=== PATIENT | male | born 1970 | race Caucasian/White ===

== ENCOUNTER → 2018-07-08 | Day surgery (SDC) | payer MEDICARE ==
[~2018-07-08] MED LIST: DEXILANT60 MG PO; FENTANYL CITRATE/PF 100MCG/2 ML INJ ONE; FUROSEMIDE40 MG PO; HYOSCYAMINE SULFATE 0.5 MG/ML INJ ONE; LIPITOR20 MG PO; LOSARTAN POTASS25 MG PO; METOCLOPRAMIDE HCL 10 MG/2ML VIAL ONE; MIDAZOLAM HCL 2 MG/2 ML VIAL ONE; NOVOLOG100 UNIT/1 SC; NOVOLOG100 UNITS1; PANTOPRAZOLE SO40 MG PO; PRAVASTATIN SOD40 MG PO; PREPARATION H C51 GM RC; PROCARDIA XL30 MG PO; PROPOFOL IV EMULSION 10 MG/ML 50 ML VIAL ONE; SENNA-GEN8.6 MG PO; TESSALON PERLE100 MG PO; TYLENOL325 MG PO; ULTRAM50 MG PO; XARELTO10 MG PO
[2018-07-08 10:55] VITALS: BP 111/80
--- NOTE | 2018-07-08 11:12 | Operative Report ---
DATE OF PROCEDURE: July 08, 2018 REFERRING PHYSICIAN: Dr. Driver at the [facility]. PROCEDURES PERFORMED 1. Esophagogastroduodenoscopy with biopsies. 2. Colonoscopy with polypectomy. INDICATIONS FOR EGD: Anemia. INDICATIONS FOR COLONOSCOPY: Anemia. MEDICATION: Patient was done under MAC. Please see anesthesiologist's note. PROCEDURE: With the patient in the left lateral decubitus position, the flexible fiberoptic Olympus gastroscope was introduced into the esophagus under direct visualization without any difficulty. There was some patchy erythema noted in the distal esophagus. The scope was then advanced with ease into the stomach. The mucosa overlying the antrum and the body revealed some patchy erythema and mild to moderate edema, and biopsies were obtained and sent to stain for H. pylori. Pylorus appeared to be of normal contour and shape. It was intubated with ease. The scope was advanced all the way to the 2nd portion of the duodenum. The scope was then withdrawn slowly, and some of the folds in the proximal 2nd portion appeared somewhat flattened, and biopsies were obtained to rule out sprue. Mucosa overlying the duodenal bulb appeared to be within normal limits. The scope was then withdrawn back into the stomach and retroflexed. The mucosa overlying the fundus and the cardia appeared to be within normal limits. The scope was then straightened out. The stomach was decompressed. The scope was subsequently withdrawn. Patient tolerated the procedure well. IMPRESSION 1. Distal esophagitis, mild. 2. Gastritis, biopsied. Biopsies sent stain for Helicobacter pylori. 3. Rule out sprue. PLAN: Follow up histology. Continue Dexilant 60 mg 1 p.o. q.a.m. a.c. Patient was then turned around. After adequate lubrication of the anal canal, a flexible fiberoptic Olympus colonoscope was inserted into the rectum with ease and advanced all the way to the cecum. The scope was then withdrawn slowly. Mucosa overlying the cecum, ascending colon and transverse colon grossly appeared to be within normal limits. One polyp was snared from the descending colon. A single diverticulum was noted in the descending colon. The sigmoid grossly appeared to be within normal limits. One polyp was snared from the rectum. The scope was then retroflexed into the distal rectum. The area around the dentate line appeared to be within normal limits. The scope was then straightened out. It was subsequently withdrawn. Patient tolerated the procedure well. IMPRESSION 1. Descending colon polyp, snared. 2. Diverticulosis, minimal. 3. Rectal polyps, snared. PLAN: Follow up histology. Initiate high initiate and high-fiber low-fat diet. Initiate high-fiber supplement. Patient might benefit from a followup colonoscopy in 3 years. Patient might benefit from a small bowel series to complete the workup. Job#: [id number] JULIETA cc: Dr. DRIVER
--- OUTSIDE RECORDS SUMMARY | 2018-07-16 11:53 | XMS REPORT ---
[facility] Address Unknown Phone Unavailable Care Team Providers Care Club Manager Name Role Phone Unavailable Unavailable Problems This patient has no known problems. Allergies, Adverse Reactions, Alerts This patient has no known allergies or adverse reactions. Medications This patient has no known medications. Encounters Start Date/Time End Date/Time Encounter Type Admission Type Attending [facility] Emergency Department Facility Care Department Encounter ID 2018-10-09 00:00:00 2018-10-09 00:00:00 Outpatient [facility] [id number] 2018-09-27 00:00:00 2018-09-27 00:00:00 Outpatient [facility] [id number] 2018-09-10 00:00:00 2018-09-10 00:00:00 Outpatient [facility] [id number] 2018-07-03 00:00:00 2018-07-03 00:00:00 Outpatient [facility] [id number] 2018-07-01 09:28:17 2018-07-01 09:28:17 Outpatient [facility] [id number] 2018-07-01 08:16:52 2018-07-01 08:16:52 Outpatient [facility] [id number] 2018-07-01 00:00:00 2018-07-01 00:00:00 Outpatient [facility] [id number] 2018-06-20 10:10:33 2018-06-20 10:10:33 Outpatient [facility] [id number] 2018-06-13 12:44:41 2018-06-13 12:44:41 Outpatient [facility] [id number] 2018-06-13 10:59:01 2018-06-13 10:59:01 Outpatient [facility] [id number] 2017-11-30 00:00:00 2017-11-30 00:00:00 Outpatient [facility] [id number] 2017-07-23 00:00:00 2017-07-23 00:00:00 Outpatient [facility] [id number] 2017-07-11 10:05:15 2017-07-11 10:05:15 Outpatient [facility] [id number] 2017-07-09 14:14:52 2017-07-09 14:14:52 Outpatient [facility] [id number] 2017-03-09 14:12:37 2017-03-09 14:12:37 Outpatient [facility] [id number] 2017-02-16 14:25:25 2017-02-16 14:25:25 Outpatient [facility] [id number] 2016-05-16 00:00:00 2016-05-16 00:00:00 Outpatient [facility] [id number] 2015-01-27 00:00:00 2015-01-27 00:00:00 Outpatient [facility] [id number]
== END | disposition home or self-care (01) ==
LOC: OR 07:40
PROVIDERS: ATTEND Internal Medicine Gastroenterology
DX: D64.9 Anemia, unspecified (principal); D12.4 Benign neoplasm of descending colon; D12.8 Benign neoplasm of rectum; K29.70 Gastritis, unspecified, without bleeding; K20.9 Esophagitis, unspecified; K21.9 Gastro-esophageal reflux disease without esophagitis; K57.30 Diverticulosis of large intestine without perforation or abscess without bleeding; E11.22 Type 2 diabetes mellitus with diabetic chronic kidney disease; I12.9 Hypertensive chronic kidney disease with stage 1 through stage 4 chronic kidney disease, or unspecified chronic kidney disease; N18.4 Chronic kidney disease, stage 4 (severe); H40.9 Unspecified glaucoma; J45.909 Unspecified asthma, uncomplicated; Z88.0 Allergy status to penicillin; Z01.810 Encounter for preprocedural cardiovascular examination; Z79.4 Long term (current) use of insulin
CPT/HCPCS: 36415; 43239; 45385; 82948; 88305; 88312; 93005; J1980; J2250; J2765; 45378

== ENCOUNTER 2019-12-08 15:36 | Inpatient (IN) | payer MEDICARE ==
[~2019-12-08] VITALS: Ht 170.2 cm; Wt 68.3 kg
[~2019-12-08 15:36] MED LIST changes: -FENTANYL CITRATE/PF 100MCG/2 ML INJ ONE; -HYOSCYAMINE SULFATE 0.5 MG/ML INJ ONE; -METOCLOPRAMIDE HCL 10 MG/2ML VIAL ONE; -MIDAZOLAM HCL 2 MG/2 ML VIAL ONE; -PROPOFOL IV EMULSION 10 MG/ML 50 ML VIAL ONE
--- NOTE | 2019-12-08 16:34 | Diagnostic Imaging Report ---
EXAMINATION: CHEST SINGLE (PORTABLE) INDICATION: Weakness COMPARISON: None FINDINGS: LINES/TUBES:EKG leads overlie the chest. LUNGS:The lungs are moderately inflated. No focal consolidation. Mild central pulmonary vascular congestion. PLEURA:No pleural effusion or pneumothorax. MEDIASTINUM:The cardiomediastinal silhouette appears normal in size and shape. Atherosclerotic calcifications of the thoracic aorta. BONES/SOFT TISSUES:No acute osseous injury. ABDOMEN:No free air under the diaphragm. IMPRESSION: Mild central pulmonary venous congestion without ana pulmonary edema. No focal pneumonia. Signed by: Sandrita Bailey MD on 12/08/2019 4:31 PM
[2019-12-08 16:46] LABS: BASOPHILS % 0.5 % (0.0-1.0); EOSINOPHILS # (AUTO) 0.4 (0.0-0.4); EOSINOPHILS % 5.8 % (0.0-6.0); HEMATOCRIT 22.6 % (38.2-49.6); HEMOGLOBIN 7.4 g/dL (14.0-18.0); LYMPHOCYTES # (AUTO) 0.8 (1.0-3.2); LYMPHOCYTES % 13.7 % (18.0-39.1); MEAN CORPUSCULAR HEMOGLOBIN 29.5 pg (28-32); MEAN CORPUSCULAR HGB CONC 32.7 g/dL (31-35); MONOCYTES # (AUTO) 0.4 (0.2-0.8); NEUTROPHILS # (AUTO) 4.4 (2.1-6.9); NEUTROPHILS % 72.7 % (38.7-80.0); PLATELET COUNT 229 x10e3/uL (140-360); RED BLOOD COUNT 2.51 x10e6/uL (4.3-5.7); RED CELL DISTRIBUTION WIDTH 14.5 % (11.7-14.4)
[2019-12-08 16:58] LABS: INR 1.01; PROTHROMBIN TIME 13.9 seconds (11.9-14.5)
[2019-12-08 16:59] LABS: PARTIAL THROMBOPLASTIN TIME 30.9 seconds (23.8-35.5)
[2019-12-08] MEDS ORDERED: CLONIDINE HCL 0.1 MG TAB PO ONE (17:15)
[2019-12-08 17:24] LABS: ALBUMIN 3.1 g/dL (3.5-5.0); ALBUMIN/GLOBULIN RATIO 0.9 (0.8-2.0); ANION GAP 17.1 mmol/L (8-16); CALCIUM 8.8 mg/dL (8.4-10.2); CREATININE, SERUM 8.59 mg/dL (0.72-1.25); POTASSIUM 4.1 mmol/L (3.5-5.1)
[2019-12-08] MEDS ORDERED: PANTOPRAZOLE 40 MG 10ML VIAL IV STA (17:35)
[2019-12-08 18:12] LABS: CREATINE KINASE MB 4.9 ng/mL (0-5.0)
[2019-12-08] MEDS ORDERED: FUROSEMIDE INJ 10 MG/ML 2 ML VIAL IV PRN (18:15)
[2019-12-08] MEDS ORDERED: SODIUM CHLORIDE 0.9% 1000ML 1,000 ML IV ONE (18:15)
[2019-12-08] MEDS ORDERED: SODIUM CHLORIDE 0.9% 250ML 250 ML IV ONE (18:15)
--- NOTE | 2019-12-08 18:53 | NUR ---
PER DR. EDWARDS, TEMP HD CATH MAY BE PLACED ON 12/09/2019 AM
--- NOTE | 2019-12-08 19:20 | NUR ---
report to dinora
--- NOTE | 2019-12-08 21:01 | Diagnostic Imaging Report ---
CT Abdomen and Pelvis without contrast INDICATION: Anemia, abdominal pain, acute renal failure ^ABD DIARRHEA ^[id number] ^2019 TECHNIQUE: Thin collimation axial images obtained from the diaphragm to the level of the pubic symphysis without nonionic intravenous contrast. Dose reduction techniques used: Automated exposure control, adjustment of the mAs and/or kVp according to patient size, standardized low-dose protocol, and/or iterative reconstruction technique. RADIATION DOSE: Total DLP: 232.89 mGy*cm Estimated effective dose: (DLP x 0.015 x size factor) mSv CTDIvol has been reviewed. It is below the limits set by the Radiation Protocol Committee (RPC). COMPARISON: None. ABDOMEN FINDINGS: Lung Bases: Cardiomegaly. Pericardial effusion measures 9 mm. Trace atelectasis in the posterior costophrenic angles. Liver: Normal in attenuation without mass. Gallbladder: Present and contains subcentimeter calcified gallstones. No ductal dilatation. Pancreas: Normal attenuation without mass. Spleen: Normal size without mass. Adrenal Glands: Diffusely thickened adrenal glands without discrete nodule. Kidneys: Right: Diminutive with mild perinephric inflammation. There are calcifications of the renal vasculature. No cortical mass or hydronephrosis Left: Diminutive with mild perinephric inflammation. There are calcifications of the renal vasculature Lymph Nodes: Periaortic lymph nodes are increased in number but measure less than 10 mm. Aorta: Normal in diameter and mildly tortuous with scattered calcifications. There are calcifications throughout the visceral arteries. PELVIS FINDINGS: Bowel: Stomach: Collapsed. Small Bowel: Normal in caliber with normal wall thickness. Large Bowel: Mild to moderate burden of stool. No pericolonic inflammation or dilatation. Appendix: Normal. Bladder: Well-distended and normal. Prostate: Mildly enlarged. There are calcifications of the vas deferens and the penis. Ureters: No ureteral dilatation or calculus. Peritoneum/retroperitoneum: No free fluid or fluid collection. Bones: Mild degenerative changes of the spine. No focal osseous lesions.. IMPRESSION: 1. No evidence for bowel obstruction or inflammation. Normal appendix. 2. Diminutive kidneys with bilateral perinephric inflammation. Findings are suggestive of chronic renal disease. No hydronephrosis. 3. Cholelithiasis. No bile duct dilatation. 4. Cardiomegaly and small pericardial effusion. 5. No splenomegaly, retroperitoneal hemorrhage, or mass to explain anemia. Signed by: Dr. Rambo Ramsay MD on 12/08/2019 8:58 PM
[2019-12-09 02:29] LABS: BASOPHILS % 0.6 % (0.0-1.0); EOSINOPHILS # (AUTO) 0.3 (0.0-0.4); EOSINOPHILS % 5.2 % (0.0-6.0); HEMATOCRIT 20.1 % (38.2-49.6); LYMPHOCYTES # (AUTO) 1.1 (1.0-3.2); LYMPHOCYTES % 20.1 % (18.0-39.1); MEAN CORPUSCULAR HEMOGLOBIN 29.5 pg (28-32); MEAN CORPUSCULAR HGB CONC 32.8 g/dL (31-35); MEAN CORPUSCULAR VOLUME 89.7 fL (81-99); MONOCYTES # (AUTO) 0.4 (0.2-0.8); MONOCYTES % 7.4 % (4.4-11.3); NEUTROPHILS # (AUTO) 3.6 (2.1-6.9); NEUTROPHILS % 66.5 % (38.7-80.0); PLATELET COUNT 199 x10e3/uL (140-360); RED BLOOD COUNT 2.24 x10e6/uL (4.3-5.7); RED CELL DISTRIBUTION WIDTH 14.3 % (11.7-14.4)
[2019-12-09 02:33] LABS: HEMOGLOBIN 6.6 g/dL (14.0-18.0)
[2019-12-09 02:40] LABS: ALBUMIN 2.7 g/dL (3.5-5.0); ALBUMIN/GLOBULIN RATIO 0.9 (0.8-2.0); CALCIUM 8.5 mg/dL (8.4-10.2); CREATININE, SERUM 8.73 mg/dL (0.72-1.25)
--- NOTE | 2019-12-09 02:40 | NUR ---
DR JONES PAGED RESULTS OF H/H (6.6.1), ORDERS RECEIVED TO TRANSFUSE ONE UNIT OF BLOOD NOW.
[2019-12-09] MEDS ORDERED: SODIUM CHLORIDE 0.9% 250ML 250 ML ONE (03:08)
--- NOTE | 2019-12-09 03:10 | NUR ---
FIRST UNIT OF BLOOD STARTED AT THIS TIME, PT EDUCATED ON S/S TRANSFUSION REACTION, VERBALIZED UNDERSTANDING.
[2019-12-09] MEDS ORDERED: SODIUM CHLORIDE 0.9% 1000ML 1,000 ML ONE ×2 (03:27→09:04)
--- NOTE | 2019-12-09 06:34 | History and Physical ---
REASON FOR ADMISSION: 1. Acute anemia. 2. Gastrointestinal bleed. 3. End-stage renal disease. 4. Hypertension. HISTORY OF PRESENT ILLNESS: The patient is a 49-year-old gentleman, who presented with some fatigue, lightheadedness and melanic stools for the past few days and eventually, he was brought to the emergency room. He was noticed to have a significantly low hemoglobin as well as worsening of his chronic kidney disease stage 5, so therefore he will be admitted for further evaluation and treatment. PAST MEDICAL HISTORY: Significant for chronic kidney disease stage 5, hypertension. MEDICATIONS: See MAR. ALLERGIES: PENICILLIN. SOCIAL HISTORY: Lives at home with his brother. Nondrinker, nonsmoker. FAMILY HISTORY: Hypertension. PHYSICAL EXAMINATION: VITAL SIGNS: Temperature 98.6, blood pressure 136/74, pulse 74, and sats 98% on room air. GENERAL: No apparent distress, lying in bed. NECK: Supple. CARDIOVASCULAR: Regular rate and rhythm. LUNGS: Clear to auscultation bilaterally. ABDOMEN: Good bowel sounds. Soft, nontender. No peritoneal signs. EXTREMITIES: No clubbing or cyanosis. NEUROLOGIC: Nonfocal. ASSESSMENT AND PLAN: 1. Gastrointestinal bleed. We will consult GI to evaluate the patient. 2. Anemia. We will continue to monitor and transfuse as needed. 3. End-stage renal disease. We will consult Renal. 4. Hypertension. We will continue to monitor. Please see hospital chart for details. MD HERNAN Pagan/ROSLYN /[id number]
[2019-12-09] MEDS: PANTOPRAZOLE 40 MG 10ML VIAL IV SCH ×2 (07:39→18:11)
--- NOTE | 2019-12-09 08:15 | Consultation ---
DATE OF CONSULTATION: 12/09/2019 HISTORY OF PRESENT ILLNESS: This is 49 years old, who has a history of diabetes and also history of renal disease and hypertension, presented to the hospital because of problems with fatigue, lightheaded, and black stool. The patient denies any abdominal pain along with this problem. His workup revealed that he has anemia with a hemoglobin as low as 6.6 this morning. His BUN of 89 with creatinine of 8.73. He denies any history of . He apparently had a colonoscopy about 2 years or so ago, which showed some small little polyps. PAST MEDICAL PROBLEMS: History of diabetes, history of hypertension, history of renal disease. ALLERGIES: PENICILLIN. MEDICATIONS: At home including atorvastatin calcium, Dexilant, Lasix, insulin, losartan, and nifedipine. SOCIAL HISTORY: Denies any alcohol use. FAMILY HISTORY: Noncontributory. REVIEW OF SYSTEMS: Denies any chest pain or shortness of breath. Denies any dysphagia or odynophagia. Denies any dysuria, hematuria, or any kind of syncopal episode. PHYSICAL EXAMINATION: GENERAL: Awake, alert, appears to be stable clinically at this point. VITAL SIGNS: Afebrile, currently with stable vital signs. HEAD, EYES, EARS, NOSE, AND THROAT: Normocephalic, atraumatic. Sclerae are anicteric. NECK: Supple. HEART: Regular. LUNGS: Sounds clear. ABDOMEN: Soft. There is no distention at this point, it is nontender. EXTREMITIES: No clubbing. LABORATORY VALUES: Earlier this morning, BUN 89, creatinine of 8.73. Hemoglobin was 6.6 with hematocrit 20.1, and PT/INR is normal. He has a CAT scan of the abdomen and pelvis, which shows evidence of small bowel obstructions, gallstones, cardiomegaly. IMPRESSION: 1. Gastrointestinal bleed. 2. Anemia. 3. Diabetes. 4. Hypertension. RECOMMENDATION: Continue on the current medications with Protonix or pantoprazole. We will proceed with EGD for further evaluations. Follow labs. MD JASS Griffin/MODL /[id number] cc: Elijah Chandler MD
[2019-12-09 09:18] LABS: BASOPHILS % 0.4 % (0.0-1.0); EOSINOPHILS # (AUTO) 0.2 (0.0-0.4); EOSINOPHILS % 3.7 % (0.0-6.0); HEMATOCRIT 22.4 % (38.2-49.6); HEMOGLOBIN 7.3 g/dL (14.0-18.0); LYMPHOCYTES # (AUTO) 1.1 (1.0-3.2); LYMPHOCYTES % 22.2 % (18.0-39.1); MEAN CORPUSCULAR HGB CONC 32.6 g/dL (31-35); MEAN CORPUSCULAR VOLUME 88.9 fL (81-99); MONOCYTES # (AUTO) 0.4 (0.2-0.8); MONOCYTES % 7.6 % (4.4-11.3); NEUTROPHILS # (AUTO) 3.2 (2.1-6.9); NEUTROPHILS % 65.7 % (38.7-80.0); PLATELET COUNT 198 x10e3/uL (140-360); RED BLOOD COUNT 2.52 x10e6/uL (4.3-5.7)
--- NOTE | 2019-12-09 09:19 | NUR ---
CONSENT DONE AND ON CHART
[2019-12-09] MEDS ORDERED: SODIUM BICARBONATE 8.4% SYRING 150 ML in DEXTROSE 5% 1,000 ML IV SCH (13:24)
[2019-12-09 13:34] VITALS: BP 169/93
--- NOTE | 2019-12-09 14:00 | NUR ---
pt arrived to unit, resp even and unlabored at this time no distress noted, pt oriented to room and call light.
[2019-12-09] MEDS ORDERED: SODIUM CHLORIDE 0.9% 250ML 250 ML IV ONE (14:45)
[2019-12-09 15:15] LABS: BASOPHILS % 0.6 % (0.0-1.0); EOSINOPHILS # (AUTO) 0.2 (0.0-0.4); EOSINOPHILS % 4.4 % (0.0-6.0); HEMATOCRIT 23.1 % (38.2-49.6); HEMOGLOBIN 7.6 g/dL (14.0-18.0); LYMPHOCYTES # (AUTO) 0.8 (1.0-3.2); LYMPHOCYTES % 17.2 % (18.0-39.1); MEAN CORPUSCULAR HEMOGLOBIN 29.3 pg (28-32); MEAN CORPUSCULAR HGB CONC 32.9 g/dL (31-35); MEAN CORPUSCULAR VOLUME 89.2 fL (81-99); MONOCYTES # (AUTO) 0.3 (0.2-0.8); MONOCYTES % 5.6 % (4.4-11.3); NEUTROPHILS # (AUTO) 3.4 (2.1-6.9); NEUTROPHILS % 71.8 % (38.7-80.0); PLATELET COUNT 199 x10e3/uL (140-360); RED BLOOD COUNT 2.59 x10e6/uL (4.3-5.7); RED CELL DISTRIBUTION WIDTH 15.3 % (11.7-14.4)
[2019-12-09 15:34] VITALS: BP 176/94
[2019-12-09] MEDS ORDERED: LIDOCAINE HCL 1% LOCAL INJ 20 ML VIAL ONE (15:37)
[2019-12-09 15:41] LABS: % IRON SATURATION 46 % (15-50); IRON 102 ug/dL (65-175); TOTAL IRON BINDING CAPACITY 223 ug/dL (261-478); TRANSFERRIN 159 mg/dL (174-364)
--- NOTE | 2019-12-09 16:26 | NUR ---
pt off unit for catheter placement.
--- NOTE | 2019-12-09 16:30 | Diagnostic Imaging Report ---
EXAM: US RENAL RETROPERITONEAL COMP DATE: 12/09/2019 12:00 AM INDICATION: Acute kidney injury COMPARISON: CT from 12/08/2019 FINDINGS: The right kidney is decreased in size measuring 7.7 x 4.9 x 4.6 cm with cortical thickness of 1.2 cm. Cortical echogenicity is increased. There is a 1.2 x 1.0 x 1.2 cm cyst identified within the mid right kidney. There is no evidence for solid renal mass, hydronephrosis, or shadowing calculi. The left kidney is mildly decreased in size measuring 8.4 x 5.2 x 4.5 cm with cortical thickness of 1.7 cm. Cortical echogenicity is increased. There is a 1.2 x 1.0 x 0.9 cm simple cyst identified within the inferior left kidney. There is no evidence for solid renal mass, hydronephrosis, or shadowing calculi. The urinary bladder demonstrates no significant abnormalities. Prevoid volume is 323 cc. IMPRESSION: Sonographic findings suggestive of chronic medical renal disease. Signed by: Dr. Diony Christopher MD on 12/09/2019 4:27 PM
--- NOTE | 2019-12-09 17:15 | Diagnostic Imaging Report ---
Tunneled dialysis catheter insertion. History: Renal failure. Modality: Sonography and fluoroscopy. Sedation: None Pipe Organ Technician: MD Candi. Aircraft Loadmaster Superintendent: None. Approach: Right internal jugular vein Estimated blood loss: < 5 cc. Specimen: None. Fluoroscopy Time: 0.5 min. Dose (Ka,r): 3.35 mGy. Technique: Informed written consent was obtained. Discussion of risks, benefits, and alternatives were made with the patient. The patient expressed understanding and agreed to proceed. All elements maximal sterile barrier technique was utilized for this procedure, including utilization of sterile scrub solution for skin prep, a large sterile sheet to cover the areas of the patient that were not prepped, and hand hygiene, mask, head covering, and sterile gown for performing radiologist and scrub technologist. The skin was anesthetized with 2% lidocaine.Ultrasound evaluation showed a patent and compressible right internal jugular vein, which was punctured under direct real-time ultrasound guidance with a micropuncture needle. An ultrasound image was saved to PACS. A 0.018 inch wire was placed through the needle into the right atrium. A 4 [place] micropuncture sheath was placed and a 0.035 wire was advanced into the IVC. A subcutaneous tunnel was created in the right anterior chest wall by blunt dissection. A 19 cm 15 [place] Islander palindrome catheter was brought through the tunnel. The vessel tract was serially dilated over a J-wire. A peel-away sheath was placed in the right IJ vein and the catheter was advanced through the sheath, with its distal tip terminating in the right atrium. The peel-away sheath was removed. The ports were flushed and aspirated easily following placement. Lumens were locked with heparin. The catheter was sutured to the skin with to secure its placement. A resorbable pursestring suture was placed at the catheter exit site. The small jugular incision site was closed using Dermabond. A sterile dressing was applied. The patient told the procedure without immediate complication. Results: Spot radiograph of the chest demonstrates the new dialysis catheter to lie in the expected position with its tip overlying the superior right atrium. Impression: Successful, uncomplicated placement of a right internal jugular tunneled dialysis catheter using sonographic and fluoroscopic guidance and conscious sedation. Signed by: Dr. Diony Christopher MD on 12/09/2019 5:13 PM
[2019-12-09] MEDS: SODIUM BICARBONATE 650 MG TAB PO SCH (17:58)
[2019-12-09] MEDS ORDERED: CEFAZOLIN SOD 1 GM/NS 50ML 50 ML IV ONE (19:00)
--- NOTE | 2019-12-09 19:23 | NUR ---
report given to oncoming nurse, walking rounds complete.
[2019-12-09] MEDS ORDERED: SODIUM CHLORIDE 0.9% 1000ML 2,000 ML ONE (19:49)
[2019-12-09 20:00] VITALS: BP 149/90
[2019-12-09 20:46] VITALS: BP 149/90
[2019-12-09 21:30] LABS: BASOPHILS % 0.3 % (0.0-1.0); EOSINOPHILS # (AUTO) 0.1 (0.0-0.4); EOSINOPHILS % 2.1 % (0.0-6.0); HEMATOCRIT 22.8 % (38.2-49.6); HEMOGLOBIN 7.6 g/dL (14.0-18.0); LYMPHOCYTES # (AUTO) 0.8 (1.0-3.2); LYMPHOCYTES % 14.1 % (18.0-39.1); MEAN CORPUSCULAR HGB CONC 33.3 g/dL (31-35); MONOCYTES # (AUTO) 0.3 (0.2-0.8); MONOCYTES % 5.9 % (4.4-11.3); NEUTROPHILS # (AUTO) 4.4 (2.1-6.9); NEUTROPHILS % 77.1 % (38.7-80.0); PLATELET COUNT 204 x10e3/uL (140-360); RED BLOOD COUNT 2.62 x10e6/uL (4.3-5.7); RED CELL DISTRIBUTION WIDTH 14.9 % (11.7-14.4)
--- NOTE | 2019-12-09 21:44 | Consultation ---
DATE OF CONSULTATION: 12/09/2019 REASON FOR CONSULTATION: Advanced kidney failure. HISTORY OF PRESENT ILLNESS: A 49-year-old white male with underlying history of longstanding diabetes since at least 2012 with retinopathy. The patient is legally blind and disabled, history of hypertension. He has been followed at [facility] for possible kidney transplant for advanced kidney failure. He knows he has CKD 5. This time came in with black-colored stools, strong suspicion of GI bleed, scheduled for EGD later on this afternoon. He is currently lying supine, in no apparent distress. Denies shortness of breath, nausea, vomiting, abdominal pain. Denies any prior history of any peptic ulcer disease. Denies any history of hepatitis, CVA, stroke, NH, congestive heart failure, or kidney stone disease. LABORATORY DATA: Labs show white count is 4.8, hemoglobin 7.3. Chemistry; sodium 143, potassium 4, bicarb 15, BUN 89, creatinine 8.7. LFTs noted. Magnesium 2. ALLERGIES: TO PENICILLIN. SOCIAL HISTORY: Does not smoke or drink. Lives with his mother. He is not . CURRENT MEDICATIONS: The patient is on IV bicarb drip along with clonidine p.r.n. and pantoprazole IV. PHYSICAL EXAMINATION: GENERAL: Awake, alert, oriented x3, lying supine, in no apparent distress. VITAL SIGNS: Blood pressure of 169/93, pulse rate 96, afebrile. HEAD AND NECK: Cornea clear. Oral mucosa moist. LUNGS: Clear. No rales. HEART: S1 and S2 audible. No rubs or gallops. ABDOMEN: Otherwise soft and nontender. No apparent visceromegaly. EXTREMITIES: Lower extremity examination shows no edema. IMPRESSION AND PLAN: Advanced kidney failure, now end-stage renal disease, severe acidosis, anemia multifactorial, must rule out GI bleed, recently had colonoscopy done by Dr. Kenny. Discussed plan of care with Dr. Kenny and ER physician. EGD will be done tomorrow. In the meantime, we will have a tunneled dialysis catheter placed GENA and dialyze, transfuse 2 units of packed RBC. I will discontinue his IV bicarbonate drip. Start bicarbonate by mouth, iron profile sent. We will need IV iron and erythropoietin. Renal diet once after EGD. Discussed with IR director, having some staffing issues, but she is going to ensure that this catheter is going to be placed today and the patient will be dialyzed. I will transfuse 2 units of packed RBC with dialysis. Discussed with the patient. He agrees with the entire plan. MD MARIANELA Mercado/ROSLYN /[id number]
[2019-12-10] VITALS (9 sets, daily range): BP systolic 119–195; BP diastolic 76–111
[2019-12-10] MEDS: CLONIDINE HCL 0.1 MG TAB PO PRN ×2 (04:45→22:32)
[2019-12-10] MEDS: PANTOPRAZOLE 40 MG 10ML VIAL IV SCH ×2 (06:00→17:02)
[2019-12-10 06:36] LABS: BASOPHILS % 0.6 % (0.0-1.0); EOSINOPHILS # (AUTO) 0.3 (0.0-0.4); HEMATOCRIT 21.8 % (38.2-49.6); HEMOGLOBIN 7.3 g/dL (14.0-18.0); LYMPHOCYTES # (AUTO) 1.1 (1.0-3.2); LYMPHOCYTES % 19.8 % (18.0-39.1); MEAN CORPUSCULAR HEMOGLOBIN 28.9 pg (28-32); MEAN CORPUSCULAR HGB CONC 33.5 g/dL (31-35); MEAN CORPUSCULAR VOLUME 86.2 fL (81-99); MONOCYTES # (AUTO) 0.4 (0.2-0.8); NEUTROPHILS # (AUTO) 3.6 (2.1-6.9); NEUTROPHILS % 67.2 % (38.7-80.0); PLATELET COUNT 188 x10e3/uL (140-360); RED BLOOD COUNT 2.53 x10e6/uL (4.3-5.7); RED CELL DISTRIBUTION WIDTH 14.6 % (11.7-14.4)
[2019-12-10] MEDS ORDERED: SODIUM CHLORIDE 0.9% 250ML 250 ML ONE (06:44)
[2019-12-10 07:15] LABS: ALBUMIN 2.7 g/dL (3.5-5.0); ALKALINE PHOSPHATASE 52 IU/L (40-150); ANION GAP 10.1 mmol/L (8-16); BLOOD UREA NITROGEN 49 mg/dL (7-26); BUN/CREATININE RATIO 8 (6-25); CALCIUM 8.3 mg/dL (8.4-10.2); CARBON DIOXIDE 25 mmol/L (22-29); CHLORIDE 109 mmol/L (98-107); CREATININE, SERUM 6.14 mg/dL (0.72-1.25); EST GLOMERULAR FILTRATION RATE 10 ML/MIN (60-); GLUCOSE 89 mg/dL (74-118); POTASSIUM 3.1 mmol/L (3.5-5.1); SODIUM 141 mmol/L (136-145)
[2019-12-10 07:23] LABS: ALANINE AMINOTRANSFERASE < 6 IU/L (0-55)
--- NOTE | 2019-12-10 08:21 | NUR ---
CALL PLACED OUT TO DR. WHITE REGARDING PATIENT BP OF 185/109- AWAITING CALLBACK. PATIENT CURRENTLY RECEIVING BLOOD AND WILL GET A DOSE OF LASIX POST TRANSFUSION.
[2019-12-10] MEDS: SODIUM BICARBONATE 650 MG TAB PO SCH ×2 (08:59→16:43)
[2019-12-10] MEDS: FUROSEMIDE INJ 10 MG/ML 2 ML VIAL IV PRN ×2 (10:00→22:31)
--- NOTE | 2019-12-10 10:15 | NUR ---
FIRST BLOOD TRANSFUSION COMPLETED. PATIENT IS AWARE THE SECOND UNIT OF PRBC WILL BE GIVEN DURING DIALYSIS. PATIENT DOES NOT WANT HIS MOTHER TO KNOW HE IS RECEIVING BLOOD BUT THE PATIENT IS AWARE THE SECOND UNIT WILL BE GIVEN DURING DIALYSIS
--- NOTE | 2019-12-10 11:33 | NUR ---
Nutrition Screen Note RD Recommendation for Physician: -ADAT to renal, 2000 ADA diet per MD. Plan of Care: RD following, monitoring for tolerance and adequacy. Pt denied education. Nepro supplement when diet is advanced. 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 The pt is currently NPO for pending EGD, per note- tunneled dialysis catheter needs to be placed GENA for him to get dialysis. Per Nephro note- the pt has been followed by the [facility] for possible kidney transplant. Pt reported his appetite has been so-so. He reported he has had weight loss d/t all the dietary restrictions he must follow. Pt was 145 lbs in Aug 2019, suggesting a 6.8% weight loss within 3 months. Pt denied education at this time. Pt denied N/V/chewing or swallowing issues as well as any food allergies. Pt did report some diarrhea. LBM: not recorded. K- low. Chart reviewed. Labs and meds reviewed. Pt had no other questions or concerns. Will continue to monitor. Current Diet: NPO Malnutrition Evaluation (12/09) The patient does not meet criteria for a specified degree of malnutrition at this time. Will re-evaluate at follow-up as appropriate. Energy intake: -Pt reported a so, so appetite. Weight loss: -Pt had a 6.8% weight loss within 3 months Fat loss: none Muscle loss: Mild-temporal Diet Education Needs Assessment: Diet education indicated, pt declined. Diet Adequacy: (Not meeting calorie needs, Not meeting protein needs) Nutrition Care Level: mod-pt is not meeting calorie needs/protein needs Signed: Reena Kearns, RD, LD
[2019-12-10 12:00] LABS: BASOPHILS % 0.5 % (0.0-1.0); EOSINOPHILS # (AUTO) 0.3 (0.0-0.4); HEMATOCRIT 23.9 % (38.2-49.6); HEMOGLOBIN 7.9 g/dL (14.0-18.0); LYMPHOCYTES # (AUTO) 0.9 (1.0-3.2); LYMPHOCYTES % 16.4 % (18.0-39.1); MEAN CORPUSCULAR HEMOGLOBIN 28.2 pg (28-32); MEAN CORPUSCULAR HGB CONC 33.1 g/dL (31-35); MEAN CORPUSCULAR VOLUME 85.4 fL (81-99); MONOCYTES # (AUTO) 0.4 (0.2-0.8); MONOCYTES % 7.6 % (4.4-11.3); NEUTROPHILS # (AUTO) 3.9 (2.1-6.9); NEUTROPHILS % 70.1 % (38.7-80.0); PLATELET COUNT 175 x10e3/uL (140-360); RED CELL DISTRIBUTION WIDTH 15.2 % (11.7-14.4)
--- NOTE | 2019-12-10 13:37 | NUR ---
PATIENT BACK ON THE UNIT FROM ENDO- PATIENT IN STABLE CONDITION WITH NO S/S RESPIRATORY DISTRESS. NO PAIN VOICED.
[2019-12-10] MEDS ORDERED: PROPOFOL IV EMULSION 10 MG/ML 50 ML VIAL ONE (14:27)
[2019-12-10] MEDS ORDERED: SODIUM CHLORIDE 0.9% 1000ML 2,000 ML ONE (16:02)
[2019-12-10] MEDS ORDERED: LOPERAMIDE HCL 2 MG CAP PO PRN (18:30)
--- NOTE | 2019-12-10 18:34 | NUR ---
CALLED AND ASKED DR. JONES FOR IMODIUM ORDER UPON PATIENT'S REQUEST SINCE PATIENT STATES " 3 LOOSE BOWEL MOVEMENTS SINCE HE ATE" (AFTER HIS PROCEDURE TODAY). RECEIVED ORDER FROM DR. JONES ON IMODIUM; ALSO ASKED DR. JONES FOR A SLIDING SCALE AND PRN BP MED- ORDERS RECEIVED.
[2019-12-10] MEDS ORDERED: DEXTROSE 50% SYRINGE 50 ML IV PRN (18:45)
--- NOTE | 2019-12-10 19:39 | NUR ---
PATIENT IN STABLE CONDITION WITH NO S/S RESPIRATORY DISTRESS. NO PAIN VOICED. PATIENT IS DUE TO RECEIVE THE SECOND UNIT OF PRBC WITH DIALYSIS THIS EVENING. CALL LIGHT IS WITHIN REACH, PATIENT INSTRUCTED TO CALL FOR ASSISTANCE NEEDED. [facility] NURSE IS INFORMED IMODIUM WAS ORDERED FOR PATIENT- CURRENTLY WAITING FOR MEDICATION TO BE VERIFIED BY PHARMACY. BEDSIDE SHIFT REPORT GIVEN TO ONCOMING NURSE.
--- NOTE | 2019-12-10 20:00 | NUR ---
RECEIVED PT IN BED AOX3 RESPIRATIONS ARE EVEN AND UNLABORED .PT IS GETTING DIALYSIS AND 2ND UNIT OF BLOOD.DENIES PAIN CALL LIGHT WITH IN REACH .CONTINUE TO MONITOR
[2019-12-10] MEDS ORDERED: HEPARIN SOD (PORCINE) 1000 UNIT/ML SDV IV PRN (20:30)
[2019-12-10] MEDS ORDERED: SODIUM CHLORIDE 0.9% 1000ML 2,000 ML IV PRN (20:30)
[2019-12-10] MEDS ORDERED: SODIUM CHLORIDE 0.9% 250ML 500 ML IV PRN (20:30)
[2019-12-10] MEDS: INSULIN LISPRO 100 UNIT/1 ML 3ML VIAL SQ SCH (21:00)
[2019-12-11] VITALS (8 sets, daily range): BP systolic 122–183; BP diastolic 74–109
[2019-12-11] MEDS ORDERED: CALCITRIOL0.25 MCG PO (01:29)
[2019-12-11] MEDS ORDERED: HYDRALAZINE HCL25 MG PO (01:29)
[2019-12-11] MEDS ORDERED: SODIUM BICARBO650 MG PO ×2 (01:29→01:37)
[2019-12-11] MEDS: CLONIDINE HCL 0.1 MG TAB PO PRN (04:30)
[2019-12-11] MEDS: PANTOPRAZOLE 40 MG 10ML VIAL IV SCH ×2 (06:07→18:07)
[2019-12-11 06:31] LABS: BASOPHILS % 0.4 % (0.0-1.0); EOSINOPHILS # (AUTO) 0.3 (0.0-0.4); EOSINOPHILS % 6.1 % (0.0-6.0); HEMATOCRIT 27.2 % (38.2-49.6); LYMPHOCYTES # (AUTO) 0.9 (1.0-3.2); LYMPHOCYTES % 17.6 % (18.0-39.1); MEAN CORPUSCULAR HEMOGLOBIN 28.3 pg (28-32); MEAN CORPUSCULAR HGB CONC 33.1 g/dL (31-35); MEAN CORPUSCULAR VOLUME 85.5 fL (81-99); MONOCYTES # (AUTO) 0.6 (0.2-0.8); MONOCYTES % 11.1 % (4.4-11.3); NEUTROPHILS # (AUTO) 3.4 (2.1-6.9); NEUTROPHILS % 64.4 % (38.7-80.0); PLATELET COUNT 159 x10e3/uL (140-360); RED BLOOD COUNT 3.18 x10e6/uL (4.3-5.7); RED CELL DISTRIBUTION WIDTH 15.2 % (11.7-14.4)
--- NOTE | 2019-12-11 06:40 | NUR ---
PT HAD DIALYSIS AND NO FLUID WAS TAKEN .B/P WAS HIGH NOTIFIED DR JONES AND GIVEN ORDERED B/P MEDS .RENEWED B/P MEDICATION .PT RESTING .CONTINUE TO MONITOR
[2019-12-11 06:47] LABS: ANION GAP 9.3 mmol/L (8-16); CALCIUM 7.8 mg/dL (8.4-10.2); CREATININE, SERUM 4.09 mg/dL (0.72-1.25); POTASSIUM 3.3 mmol/L (3.5-5.1)
--- NOTE | 2019-12-11 07:18 | NUR ---
BEDSIDE REPORT GIVEN TO THE ONCOMING NURSE
--- NOTE | 2019-12-11 07:20 | NUR ---
PATIENT IN STABLE CONDITION WITH NO S/S RESPIRATORY DISTRESS. TELEMETRY APPLIED. NO PAIN VOICED. CALL LIGHT IS WITHIN REACH, PATIENT INSTRUCTED TO CALL FOR ASSISTANCE NEEDED.
[2019-12-11] MEDS: INSULIN LISPRO 100 UNIT/1 ML 3ML VIAL SQ SCH ×4 (07:30→21:00)
[2019-12-11] MEDS: NIFEDIPINE CR 30 MG TAB PO SCH (07:43)
[2019-12-11] MEDS: SODIUM BICARBONATE 650 MG TAB PO SCH ×2 (07:44→17:45)
[2019-12-11] MEDS: CALCITRIOL 0.25 MCG CAP PO SCH (07:44)
[2019-12-11] MEDS: HYDRALAZINE HCL 25 MG TAB PO SCH ×3 (08:40→21:00)
[2019-12-11] MEDS ORDERED: AMLODIPINE BESYLATE 5 MG TAB PO SCH (09:00)
[2019-12-11 11:46] LABS: BASOPHILS % 0.4 % (0.0-1.0); EOSINOPHILS # (AUTO) 0.3 (0.0-0.4); EOSINOPHILS % 6.7 % (0.0-6.0); HEMATOCRIT 25.8 % (38.2-49.6); HEMOGLOBIN 8.6 g/dL (14.0-18.0); LYMPHOCYTES % 20.8 % (18.0-39.1); MEAN CORPUSCULAR HEMOGLOBIN 28.5 pg (28-32); MEAN CORPUSCULAR HGB CONC 33.3 g/dL (31-35); MEAN CORPUSCULAR VOLUME 85.4 fL (81-99); MONOCYTES # (AUTO) 0.6 (0.2-0.8); MONOCYTES % 11.2 % (4.4-11.3); NEUTROPHILS % 60.7 % (38.7-80.0); PLATELET COUNT 157 x10e3/uL (140-360); RED BLOOD COUNT 3.02 x10e6/uL (4.3-5.7); RED CELL DISTRIBUTION WIDTH 15.2 % (11.7-14.4)
--- NOTE | 2019-12-11 12:19 | NUR ---
PT SIGNED CHOICE FOR [facility] WOULD LIKE , AND SUNDAY MORNINGS, WILL JOSE ARMANDO PACKET AND FAX TO ADMISSIONS.
[2019-12-11 19:04] LABS: BASOPHILS % 0.6 % (0.0-1.0); EOSINOPHILS # (AUTO) 0.3 (0.0-0.4); HEMATOCRIT 30.5 % (38.2-49.6); HEMOGLOBIN 10.2 g/dL (14.0-18.0); LYMPHOCYTES # (AUTO) 0.9 (1.0-3.2); LYMPHOCYTES % 17.7 % (18.0-39.1); MEAN CORPUSCULAR HEMOGLOBIN 29.1 pg (28-32); MEAN CORPUSCULAR HGB CONC 33.4 g/dL (31-35); MEAN CORPUSCULAR VOLUME 86.9 fL (81-99); MONOCYTES # (AUTO) 0.6 (0.2-0.8); MONOCYTES % 12.1 % (4.4-11.3); NEUTROPHILS % 62.4 % (38.7-80.0); PLATELET COUNT 172 x10e3/uL (140-360); RED BLOOD COUNT 3.51 x10e6/uL (4.3-5.7)
--- NOTE | 2019-12-11 19:39 | NUR ---
PATIENT IN STABLE CONDITION WITH NO S/S RESPIRATORY DISTRESS. NO PAIN VOICED. PATIENT HAD HIS THIRD DAY OF DIALYSIS TODAY- NO FLUIDS REMOVED. CALL LIGHT IS WITHIN REACH, PATIENT INSTRUCTED TO CALL FOR ASSISTANCE NEEDED. BEDSIDE SHIFT REPORT GIVEN TO ONCOMING NURSE.
--- NOTE | 2019-12-11 19:51 | NUR ---
RECEIVE DPT IN BED AOX3 .DENIES PAIN .PT HAD DIALYSIS .NO FLUID HAS TAKEN .B/P IS UNDER CONTROL .CALL LIGHT WITH IN REACH .CONTINUE TO MONITOR
[2019-12-11] MEDS: ATORVASTATIN 20 MG TAB PO SCH (21:55)
[2019-12-12] VITALS (8 sets, daily range): BP systolic 138–165; BP diastolic 62–105
--- NOTE | 2019-12-12 06:21 | NUR ---
PT RESTING NO ACUTE DISTRESS NOTED ,CALL LIGHT WITH IN REACH ,CONTINUE TO MONITOR
[2019-12-12 06:38] LABS: BASOPHILS % 0.6 % (0.0-1.0); EOSINOPHILS # (AUTO) 0.4 (0.0-0.4); EOSINOPHILS % 7.3 % (0.0-6.0); HEMATOCRIT 27.8 % (38.2-49.6); HEMOGLOBIN 9.2 g/dL (14.0-18.0); LYMPHOCYTES % 19.5 % (18.0-39.1); MEAN CORPUSCULAR HEMOGLOBIN 28.8 pg (28-32); MEAN CORPUSCULAR HGB CONC 33.1 g/dL (31-35); MEAN CORPUSCULAR VOLUME 86.9 fL (81-99); MONOCYTES # (AUTO) 0.6 (0.2-0.8); MONOCYTES % 10.7 % (4.4-11.3); NEUTROPHILS # (AUTO) 3.2 (2.1-6.9); NEUTROPHILS % 61.7 % (38.7-80.0); PLATELET COUNT 157 x10e3/uL (140-360); RED CELL DISTRIBUTION WIDTH 14.8 % (11.7-14.4)
[2019-12-12 07:00] LABS: ANION GAP 11.4 mmol/L (8-16); CALCIUM 7.8 mg/dL (8.4-10.2); CREATININE, SERUM 3.67 mg/dL (0.72-1.25); POTASSIUM 3.4 mmol/L (3.5-5.1)
--- NOTE | 2019-12-12 07:14 | NUR ---
CONSULTED DR MINER FOR FOR [facility] FOR DIALYSIS .BEDSIDE REPORT GIVEN TO THE ON COMING NURSE
--- NOTE | 2019-12-12 07:15 | NUR ---
PATIENT IN STABLE CONDITION WITH NO S/S RESPIRATORY DISTRESS. TELEMETRY APPLIED. NO PAIN VOICED. CALL LIGHT IS WITHIN REACH, PATIENT INSTRUCTED TO CALL FOR ASSISTANCE NEEDED.
[2019-12-12] MEDS: PANTOPRAZOLE 40 MG 10ML VIAL IV SCH ×2 (07:20→17:14)
[2019-12-12] MEDS: INSULIN LISPRO 100 UNIT/1 ML 3ML VIAL SQ SCH ×4 (07:30→21:20)
[2019-12-12] MEDS: CALCITRIOL 0.25 MCG CAP PO SCH (08:33)
[2019-12-12] MEDS: SODIUM BICARBONATE 650 MG TAB PO SCH (08:33)
[2019-12-12] MEDS: NIFEDIPINE CR 30 MG TAB PO SCH (08:33)
[2019-12-12] MEDS: HYDRALAZINE HCL 25 MG TAB PO SCH ×3 (08:33→21:03)
[2019-12-12] MEDS ORDERED: EPOETIN ALFA-EPBX 10,000 UNIT/ML VIAL SC NR (15:30)
--- NOTE | 2019-12-12 15:42 | NUR ---
CAMI MCDERMOTT ([phone]), SPOKE WITH REPMONICA, REGARDING DR. PRESCOTT'S ORDER FOR DIALYSIS TOMORROW, 12/13/19. MONICA WILL INFORM DIALYSIS NURSE.
--- NOTE | 2019-12-12 19:18 | NUR ---
PATIENT IN STABLE CONDITION WITH NO S/S RESPIRATORY DISTRESS. NO PAIN VOICED. PATIENT AWARE HE WILL BE RECEIVING DIALYSIS TOMORROW. CALL LIGHT IS WITHIN REACH, PATIENT INSTRUCTED TO CALL FOR ASSISTANCE NEEDED. BEDSIDE SHIFT REPORT GIVEN TO ONCOMING NURSE.
--- NOTE | 2019-12-12 19:24 | Consultation ---
DATE OF CONSULTATION: 12/12/2019 REASON FOR CONSULT: End-stage renal failure, need for permanent dialysis access; requested by Dr. Latosha Rees. Documentation Specialist is Dr. Elijah Chandler. HISTORY: I saw and evaluated this patient on December 12, 2019. He is a 49-year-old man with a long history of diabetes and multiple sequelae including renal insufficiency and retinopathy. He is legally blind and disabled. There is also a history of hypertension. He has been followed at the [facility] for possible kidney transplant and renal failure. He was admitted via the emergency room at [facility] with black stool and malaise. EGD was performed and reportedly showed some small ulcers, which are being treated medically. His creatinine was elevated at approximately 8.7. Dialysis was initiated via a tunneled dialysis catheter. Permanent dialysis access is recommended. The patient is tolerating dialysis well. No clear history of hepatitis, CVA, stroke, AL, TIA, congestive heart failure or renal stone disease. No fevers or chills. PAST MEDICAL HISTORY: Positive for hypertension, chronic renal insufficiency, retinopathy, hypertension, diabetes. ALLERGIES: PENICILLIN. MEDICATIONS: See MAR. SOCIAL HISTORY: Negative for smoking or alcohol. He lives with his mother. FAMILY HISTORY: Negative for renal insufficiency. REVIEW OF SYSTEMS: GENERAL: Positive for fatigue and malaise. NEUROLOGIC: Negative for focal weakness in extremities or dysarthria. HEENT: Negative for decreased vision or decreased hearing. CARDIAC: Negative for chest pain, palpitation. PULMONARY: Negative for shortness of breath or wheezing. GI: Positive for GI bleeding as above. Negative for constipation or diarrhea. : Negative for hematuria or dysuria. ENDOCRINE: Negative for polyuria, polydipsia. Positive for multiple sequelae including blindness and renal insufficiency. HEMATOLOGIC: Positive for bleeding. He is positive for GI bleeding as above. Negative for clotting. Negative for DVT. SKIN: Negative for rashes. MUSCULOSKELETAL: Negative for joint pain or weakness. ONCOLOGIC: Negative for malignancy. PSYCHIATRIC: Negative for depression or anxiety. PHYSICAL EXAMINATION: GENERAL: A well-developed, well-nourished man sitting up in bed, in no apparent distress. His mother is at the bedside. VITAL SIGNS: Blood pressure 140/70, pulse 80 and regular, respirations 16 and unlabored. NECK: Supple and nontender. No JVD. CARDIAC: Shows a regular rate and rhythm. There is a normal S1 and S2. There is no S3, S4, rub, or murmur. LUNGS: Clear to auscultation and percussion bilaterally. ABDOMEN: Globoid, benign. Good bowel sounds. No hepatosplenomegaly. BACK: No CVA tenderness. No muscular spasm. EXTREMITIES: No cyanosis, clubbing, or edema. The cephalic vein is palpable in the left upper extremity; it is most prominent in the forearm, but also palpable in the upper arm. On the right, it is palpable in the upper arm but not in the forearm. The patient is left handed. VASCULAR: Carotids 2+/2+ bilaterally. Brachials and femorals 2+/2+ bilaterally. Ulnars and radials 1+/2+ bilaterally. SKIN: No rashes or nonhealing ulcers. MUSCULOSKELETAL: Full range of motion at all joints. No joint swelling. NEUROLOGIC: Cranial nerves II to XII intact. Sensation intact to light touch and pinprick bilaterally. Strength 5/5 all extremities. LYMPHATIC: Negative for cervical, clavicular, femoral adenopathy. LABORATORY DATA: White count 5.2, hemoglobin 9.2, hematocrit 27.8, platelet count 157,000. INR 1.01, PT 13.9, PTT 30.9. Sodium 140, potassium 3.4, BUN 21, creatinine 3.67. IMPRESSION: I agree with the need for permanent dialysis access. I will discuss the timing of surgery with the patient and his other physicians. I described the operation to the patient and his . I told them both that the risks of surgery would include , bleeding, infection, heart attack, stroke, pneumonia, prolonged ICU stay, mechanical ventilation, tracheostomy, permanent hand/limb muscle or nerve damage, hand/limb amputation, hand/limb chronic pain, a 10% to 15% chance of the fistula might not able to mature appropriately and require subsequent revision, further surgery, replacement, etc. And also the risk of possible amputation, etc. The patient and his mother each stated that they understood, no further questions, and wanted to proceed. MD MARIANO Molina/ROSLYN /[id number]
[2019-12-12] MEDS: ATORVASTATIN 20 MG TAB PO SCH (21:03)
--- NOTE | 2019-12-12 21:10 | NUR ---
AAOX3.ASSESSMENT DONE.NO RESP.DISTRESS.BED LOCKED AND IN LOWEST POSITION.PHONE AND CALL LIGHT WITHIN REACH.INSTRUCTED TO CALL FOR ASSISTANCE NEEDED.BED ALARM ON.STABLE CONDITION.NO PAIN VOICED.SNACKS PROVIDED.
[2019-12-13] VITALS (8 sets, daily range): BP systolic 140–175; BP diastolic 79–98
[2019-12-13] MEDS: PANTOPRAZOLE 40 MG 10ML VIAL IV SCH ×2 (05:37→17:06)
[2019-12-13 06:52] LABS: BASOPHILS % 0.4 % (0.0-1.0); EOSINOPHILS # (AUTO) 0.5 (0.0-0.4); EOSINOPHILS % 8.3 % (0.0-6.0); HEMATOCRIT 26.8 % (38.2-49.6); HEMOGLOBIN 8.9 g/dL (14.0-18.0); LYMPHOCYTES # (AUTO) 1.1 (1.0-3.2); LYMPHOCYTES % 19.8 % (18.0-39.1); MEAN CORPUSCULAR HEMOGLOBIN 29.1 pg (28-32); MEAN CORPUSCULAR HGB CONC 33.2 g/dL (31-35); MEAN CORPUSCULAR VOLUME 87.6 fL (81-99); MONOCYTES # (AUTO) 0.5 (0.2-0.8); MONOCYTES % 9.6 % (4.4-11.3); NEUTROPHILS # (AUTO) 3.3 (2.1-6.9); NEUTROPHILS % 61.7 % (38.7-80.0); PLATELET COUNT 139 x10e3/uL (140-360); RED BLOOD COUNT 3.06 x10e6/uL (4.3-5.7); RED CELL DISTRIBUTION WIDTH 14.7 % (11.7-14.4)
--- NOTE | 2019-12-13 07:00 | NUR ---
received bedside report. pt is alert resting in bed, no s/s of distress. call light within reach and instructed pt to call RN for help
--- NOTE | 2019-12-13 07:10 | NUR ---
BED SIDE SHIFT REPORT GIVEN TO ONCOMING RN.STABLE CONDITION.
[2019-12-13 07:15] LABS: ANION GAP 9.5 mmol/L (8-16); CALCIUM 8.2 mg/dL (8.4-10.2); CREATININE, SERUM 4.71 mg/dL (0.72-1.25); POTASSIUM 3.5 mmol/L (3.5-5.1)
[2019-12-13] MEDS: INSULIN LISPRO 100 UNIT/1 ML 3ML VIAL SQ SCH ×4 (07:30→20:36)
[2019-12-13] MEDS: HYDRALAZINE HCL 25 MG TAB PO SCH ×3 (09:05→20:30)
[2019-12-13] MEDS: NIFEDIPINE CR 30 MG TAB PO SCH (09:05)
[2019-12-13] MEDS: CALCITRIOL 0.25 MCG CAP PO SCH (09:05)
--- NOTE | 2019-12-13 17:53 | Progress Note ---
DATE: 12/13/2019 SUBJECTIVE: Feels better. Denies any dyspnea on dialysis, tolerating. PHYSICAL EXAMINATION: VITAL SIGNS: Temperature is 97.3, blood pressure 157/98, pulse 90. CHEST: Clear. EXTREMITIES: No edema. NECK: Right IJ tunneled dialysis catheter. LABORATORY DATA: Hemoglobin is 8.9, K 3.5, creatinine 4.7, BUN 33. ASSESSMENT: 1. End-stage renal disease. 2. Diabetic nephropathy. 3. Hypertension. 4. Volume status appears to be grossly euvolemic. 5. Anemia with adequate iron stores. PLAN: Hemodialysis today for metabolic and volume clearance. Please see orders for details. We will follow along. MD FREDERICK FowlerK/MODL /[id number]
[2019-12-13] MEDS: ATORVASTATIN 20 MG TAB PO SCH (20:30)
[2019-12-14] VITALS (10 sets, daily range): BP systolic 142–168; BP diastolic 82–93
--- NOTE | 2019-12-14 00:48 | NUR ---
RESTING COMFORTABLY IN THE BED.STABLE CONDITION.
[2019-12-14] MEDS: PANTOPRAZOLE 40 MG 10ML VIAL IV SCH ×2 (05:55→17:25)
--- NOTE | 2019-12-14 07:00 | NUR ---
received bedside report. pt is alert resting in bed, no s/s of distress. call light within reach and instructed pt to call RN for help
--- NOTE | 2019-12-14 07:01 | NUR ---
BED SIDE SHIFT REPORT GIVEN TO ONCOMING RN.STABLE CONDITION.
[2019-12-14] MEDS: INSULIN LISPRO 100 UNIT/1 ML 3ML VIAL SQ SCH ×4 (07:30→22:17)
[2019-12-14] MEDS: HYDRALAZINE HCL 25 MG TAB PO SCH ×3 (08:58→21:03)
[2019-12-14] MEDS: CALCITRIOL 0.25 MCG CAP PO SCH (08:58)
[2019-12-14] MEDS: NIFEDIPINE CR 30 MG TAB PO SCH (08:58)
--- NOTE | 2019-12-14 10:50 | Progress Note ---
DATE: 12/14/2019 SUBJECTIVE: This is a 49-year-old gentleman with end-stage renal disease. The patient comes in with anemia and GI bleed. Has been evaluated by Dr. Perry Jerry. The patient is currently stable. No chest pain. No shortness of breath. No nausea, no vomiting. No diarrhea and had EGD done. OBJECTIVE: VITAL SIGNS: Temperature is 97.5, pulse of 78, respirations of 20, blood pressure is 163/88, and pulse oximeter of 99%. HEENT: Normocephalic and atraumatic. Pupils are reactive to light and accommodation. CVS: S1 and S2 normal. Regular rate and rhythm. ABDOMEN: Nontender, nondistended. EXTREMITIES: No cyanosis, no edema. LABORATORY VALUES: White count is normal yesterday at 5.40, hemoglobin of 8.9, hematocrit of 26.8, which is stable. Chemistries; sodium 140, potassium 3.5, BUN of 33, creatinine 4.7. The patient has been seen also by Dr. Perez for fistula. The patient had dialysis yesterday. PLAN: Plan again will be to continue with dialysis. The patient to be seen by Dr. Perez again tomorrow. Continue to monitor the patient. He is on PPI for the GI bleed and need an arrangement for outpatient chair. GI bleed is completely resolved. Anemia is better. We will check his labs tomorrow. Further recommendation per clinical course. We will continue to monitor the patient. MD CHICHI Matias/MODL /[id number]
[2019-12-14] MEDS: ATORVASTATIN 20 MG TAB PO SCH (21:03)
[2019-12-15] VITALS (10 sets, daily range): BP systolic 140–172; BP diastolic 83–99
[2019-12-15] MEDS: PANTOPRAZOLE 40 MG 10ML VIAL IV SCH ×2 (05:16→18:00)
--- NOTE | 2019-12-15 07:25 | NUR ---
PATIENT IN BED RESTING WITH NO S/S OF DISTRESS. DIALYSIS CATHETER INTACT TO RIGHT CHEST. BED IN LOWER POSITION, CALL LIGHT AT REACH.
[2019-12-15] MEDS: INSULIN LISPRO 100 UNIT/1 ML 3ML VIAL SQ SCH ×4 (07:30→21:08)
[2019-12-15] MEDS: NIFEDIPINE CR 30 MG TAB PO SCH (09:16)
[2019-12-15] MEDS: HYDRALAZINE HCL 25 MG TAB PO SCH ×3 (09:16→21:06)
[2019-12-15] MEDS: CALCITRIOL 0.25 MCG CAP PO SCH (09:16)
--- NOTE | 2019-12-15 09:34 | NUR ---
Nutrition Screen Note RD Recommendation for Physician: -Continue current diet per MD. Plan of Care: RD following, monitoring for tolerance and adequacy. Education provided. Nepro supplement when diet is advanced. Nutrition reason for involvement: f/u Primary Diagnose(s): Anemia IN ESRD PMH: who has a history of diabetes and also history of renal disease and hypertension, Ht: 67 in Wt:135 lb BMI: 21.1 kg/m2 IBW: [address] Assessment: 12/14: follow up: Pt was seen resting in bed. The pt reported his appetite has improved and he denied N/V/C/D at this time. Pt had EGD done. POC GM: 106-201. Pt has been consuming 75-100% of his meals per FS. LBM: 12/11 per FS. Pt accepted education regarding MNT for the renal diet. Pt verbalized understanding. Encouraged pt to continue to see outpatient renal dietitian at his dialysis center. Will continue to monitor. (12/09) 49 YOM admitted for anemia in ESRD, GI bleed with PMH listed above. The pt is currently NPO for pending EGD, per note- tunneled dialysis catheter needs to be placed GENA for him to get dialysis. Per Nephro note- the pt has been followed by the [facility] transplant clinic for possible kidney transplant. Pt reported his appetite has been so-so. He reported he has had weight loss d/t all the dietary restrictions he must follow. Pt was 145 lbs in Aug 2019, suggesting a 6.8% weight loss within 3 months. Pt denied education at this time. Pt denied N/V/chewing or swallowing issues as well as any food allergies. Pt did report some diarrhea. LBM: not recorded. K- low. Chart reviewed. Labs and meds reviewed. Pt had no other questions or concerns. Will continue to monitor. Current Diet: Renal DM diet Malnutrition Evaluation (12/09) The patient does not meet criteria for a specified degree of malnutrition at this time. Will re-evaluate at follow-up as appropriate. Energy intake: -Pt reported a so, so appetite. Weight loss: -Pt had a 6.8% weight loss within 3 months Fat loss: mod- triceps Muscle loss: mod-temporal Diet Education Needs Assessment: Diet education indicated, pt accepted. Diet Adequacy: meeting calorie needs, meeting protein needs Nutrition Care Level: low -pt is now meeting calorie needs/protein needs Signed: Reena Kearns RD, LD Nutrition Education Learner(s): pt Barriers: No barriers identified. Cultural/Language Modifications: No cultural/language modifications noted Readiness: acceptance Method: discussion, handout Topics: MNT for patients on dialysis, BRANDY and information from the [employer] [place] of DM and Digestive and Kidney Diseases, encouraged outpatient nutrition counseling Understanding/Compliance: Expect fair understanding/compliance from pt.
--- NOTE | 2019-12-15 11:06 | NUR ---
PATIENT AMBULATING IN ROOM, NO COMPLAIN VOICED.
--- NOTE | 2019-12-15 11:50 | NUR ---
SPOKE WITH ANNEL AT [facility] HE IS APPROVED FOR A SAT CHAIR TO START ON SUNDAY. WILL SEND LETTER. WHEN OBTAIN WILL DOCUMENT AND PROVIDER TO PATIENT.
--- NOTE | 2019-12-15 16:07 | NUR ---
PATIENT NOTED WITH BLOOD SUGAR OF 40. NO S/S OF HYPOGLYCEMIA NOTED. CRANBERRY JUICE GIVEN AND WELL TOLERATED. BLOOD SUGAR RECHECKED WITH THE READING OF 88. WILL CLOSELY MONITOR.
--- NOTE | 2019-12-15 19:11 | NUR ---
BEDSIDE SHIFT REPORT GIVEN TO ON COMING NURSE.
--- NOTE | 2019-12-15 20:25 | NUR ---
Dialysis done. Patient tolerated. Pulled 1.5 L of fluid for 3.5 hrs.
[2019-12-15] MEDS: ATORVASTATIN 20 MG TAB PO SCH (21:06)
[2019-12-16] VITALS (8 sets, daily range): BP systolic 147–159; BP diastolic 83–90
[2019-12-16] MEDS: PANTOPRAZOLE 40 MG 10ML VIAL IV SCH ×2 (05:20→16:54)
[2019-12-16 06:40] LABS: ALBUMIN 2.7 g/dL (3.5-5.0); ANION GAP 8.6 mmol/L (8-16); CALCIUM 8.3 mg/dL (8.4-10.2); CREATININE, SERUM 3.67 mg/dL (0.72-1.25); POTASSIUM 3.6 mmol/L (3.5-5.1)
[2019-12-16 07:04] LABS: BASOPHILS % 0.3 % (0.0-1.0); EOSINOPHILS # (AUTO) 0.2 (0.0-0.4); EOSINOPHILS % 3.2 % (0.0-6.0); HEMATOCRIT 28.7 % (38.2-49.6); LYMPHOCYTES # (AUTO) 1.3 (1.0-3.2); LYMPHOCYTES % 18.6 % (18.0-39.1); MEAN CORPUSCULAR HGB CONC 31.4 g/dL (31-35); MEAN CORPUSCULAR VOLUME 89.1 fL (81-99); MONOCYTES # (AUTO) 0.6 (0.2-0.8); MONOCYTES % 8.5 % (4.4-11.3); NEUTROPHILS # (AUTO) 4.8 (2.1-6.9); PLATELET COUNT 155 x10e3/uL (140-360); RED BLOOD COUNT 3.22 x10e6/uL (4.3-5.7); RED CELL DISTRIBUTION WIDTH 14.5 % (11.7-14.4)
[2019-12-16] MEDS: CALCITRIOL 0.25 MCG CAP PO SCH (08:58)
[2019-12-16] MEDS: HYDRALAZINE HCL 25 MG TAB PO SCH ×3 (08:58→20:38)
[2019-12-16] MEDS: NIFEDIPINE CR 30 MG TAB PO SCH (08:58)
[2019-12-16] MEDS: INSULIN LISPRO 100 UNIT/1 ML 3ML VIAL SQ SCH ×4 (09:44→20:59)
--- NOTE | 2019-12-16 19:29 | NUR ---
Report given to oncoming nurse, walking rounds complete. Pt stable at this time.
[2019-12-16] MEDS: ATORVASTATIN 20 MG TAB PO SCH (20:38)
[2019-12-17] VITALS (8 sets, daily range): BP systolic 145–177; BP diastolic 83–100
[2019-12-17] MEDS: PANTOPRAZOLE 40 MG 10ML VIAL IV SCH ×2 (05:10→17:45)
--- NOTE | 2019-12-17 07:00 | NUR ---
received bedside report. pt is alert sitting up in bed, no s/s of distress. call light within reach and instructed pt to call RN for help
[2019-12-17] MEDS: INSULIN LISPRO 100 UNIT/1 ML 3ML VIAL SQ SCH ×4 (07:30→19:47)
[2019-12-17] MEDS: HYDRALAZINE HCL 25 MG TAB PO SCH ×3 (08:58→19:58)
[2019-12-17] MEDS: NIFEDIPINE CR 30 MG TAB PO SCH (08:59)
[2019-12-17] MEDS: CALCITRIOL 0.25 MCG CAP PO SCH (09:00)
[2019-12-17] MEDS ORDERED: BISACODYL 5 MG TAB EC PO PRN (18:30)
--- NOTE | 2019-12-17 19:19 | NUR ---
Received change of shift report from AM nurse. Walking rounds completed.
[2019-12-17] MEDS: ATORVASTATIN 20 MG TAB PO SCH (19:58)
[2019-12-18] VITALS: BP 165/97
[2019-12-18 04:00] VITALS: BP_SYST 147; BP_SYST 165; BP_DIAS 79; BP_DIAS 97
--- NOTE | 2019-12-18 04:24 | NUR ---
Patient resting quitly with no c/o at this time. Continue monitor.
[2019-12-18] MEDS: PANTOPRAZOLE 40 MG 10ML VIAL IV SCH ×2 (05:09→16:54)
[2019-12-18] MEDS: INSULIN LISPRO 100 UNIT/1 ML 3ML VIAL SQ SCH ×4 (07:30→21:00)
[2019-12-18 08:00] VITALS: BP 165/96
[2019-12-18] MEDS: HYDRALAZINE HCL 25 MG TAB PO SCH ×3 (08:50→21:00)
[2019-12-18 08:51] VITALS: BP 165/96
[2019-12-18] MEDS: NIFEDIPINE CR 30 MG TAB PO SCH (08:51)
[2019-12-18] MEDS: CALCITRIOL 0.25 MCG CAP PO SCH (08:51)
[2019-12-18] MEDS ORDERED: METOCLOPRAMIDE HCL 10 MG/2ML VIAL IV ONE (10:00)
[2019-12-18] MEDS ORDERED: CITRIC ACID/SODIUM CITRATE 30 ML UDC PO ONE (10:00)
[2019-12-18 10:10] LABS: ANION GAP 11.9 mmol/L (8-16); CALCIUM 8.6 mg/dL (8.4-10.2); CREATININE, SERUM 4.28 mg/dL (0.72-1.25); POTASSIUM 4.9 mmol/L (3.5-5.1)
--- NOTE | 2019-12-18 10:14 | NUR ---
pt signed consent for fistula placement
[2019-12-18] MEDS ORDERED: SODIUM CHLORIDE 0.9% 500ML 500 ML ONE ×2 (11:22→11:38)
[2019-12-18] MEDS ORDERED: THROMBIN FOR SOLN 5,000 UNIT VIAL ONE (11:22)
[2019-12-18] MEDS ORDERED: HEPARIN SOD (PORCINE) 5,000 UNIT/ML VIAL ONE (11:22)
[2019-12-18] MEDS ORDERED: BUPIVACAINE HCL 0.5% INJ 30 ML VIAL INJ ONE (11:22)
[2019-12-18] MEDS ORDERED: PROTAMINE SULFATE 10 MG/ML 5 ML VIAL ONE (11:22)
[2019-12-18] MEDS ORDERED: HEPARIN SOD (PORCINE) 1000 UNIT/ML 30ML ONE (11:22)
--- NOTE | 2019-12-18 11:39 | NUR ---
pt off unit for procedure.
[2019-12-18 11:52] VITALS: BP 180/97
[2019-12-18] MEDS ORDERED: FENTANYL CITRATE/PF 100MCG/2 ML INJ ONE (12:50)
[2019-12-18] MEDS ORDERED: MIDAZOLAM HCL 2 MG/2 ML VIAL ONE (12:50)
[2019-12-18] MEDS ORDERED: VANCOMYCIN 1GM/NS 250 ML 250 ML ONE (13:07)
[2019-12-18] MEDS ORDERED: LIDOCAINE HCL 2% LOCAL INJ 5 ML SDV VIAL INJ ONE (14:03)
[2019-12-18] MEDS ORDERED: SEVOFLURANE INHAL SOLN 250 ML PEN BTL ONE (14:03)
[2019-12-18] MEDS ORDERED: SUCCINYLCHOLINE CHLORIDE 20 MG/ML 10ML VIAL ONE (14:03)
[2019-12-18] MEDS ORDERED: PROPOFOL IV EMULSION 10 MG/ML 20 ML VIAL ONE (14:03)
[2019-12-18] MEDS ORDERED: NEOSTIGMINE 1 MG/ML 10ML VIAL ONE (14:29)
--- NOTE | 2019-12-18 17:30 | NUR ---
pt returned to unit at this time , pt awaken to voice and answers correctly, call light in reach.
--- NOTE | 2019-12-18 18:24 | Operative Report ---
DATE OF PROCEDURE: 12/18/2019 SURGEON: Blas Perez MD PREOPERATIVE DIAGNOSES: End-stage renal failure, need for permanent dialysis access, hypertension. POSTOPERATIVE DIAGNOSES: End-stage renal failure, need for permanent dialysis access, hypertension. OPERATIVE PROCEDURE: Creation of left radial artery to cephalic vein arteriovenous fistula. HOUSING ASSISTANT: Nursing staff. ANESTHESIA: General endotracheal. INDICATIONS: This is a 49-year-old man with end-stage renal failure. Permanent dialysis access has been recommended. Prior to surgery, I described the operation to the patient and his . His is not with him this afternoon because of the ward virus restrictions. Today, I told him, as I told him and his before, that the risks of surgery would include , bleeding, infection, heart attack, stroke, pneumonia, prolonged ICU stay, mechanical ventilation, tracheostomy, permanent hand/limb muscle and nerve damage, hand/limb chronic pain, hand/limb amputation, a 10% to 15% chance of the fistula might not and routine mature appropriately and require subsequent revision, further surgery, replacement, etc. The patient stated that he understood, no further question, wanted to proceed. We discussed that this would be a left upper extremity fistula. FINDINGS: Uneventful creation of left radial artery to cephalic vein AV fistula. Cephalic vein of acceptable caliber and quality. Good thrill and bruit conclusion of operation, the radial artery was somewhat calcified. DESCRIPTION OF PROCEDURE: The patient was taken to the operating room on December 18, 2019 and placed supine upon the operating room table. General endotracheal anesthesia was smoothly induced. The left upper extremity was sterilely prepped and draped in the usual fashion using alcohol prewash and Betadine scrub and solution. Time-out was performed appropriately. Incision was made midway between the cephalic vein and radial artery several centimeters proximal to the wrist. The cephalic vein was dissected from its surrounding tissues. It was of acceptable caliber and quality. The radial artery was dissected from its surrounding tissues at the same level. It was somewhat calcified, but had a palpable pulse. The patient was systemically heparinized using 1 mg/kg of heparin intravenously. The cephalic vein was divided distally. It accepted a 3.0 mm dilator without difficulty. There was no evidence of venous stenoses. Radial artery was occluded proximally and distally. Longitudinal arteriotomy was created. There was excellent arterial inflow and backbleeding. An end-to-side anastomosis of vein to artery was performed using two running 7-0 Prolene. Prior to completing the anastomosis, a 2.0 mm dilator passed easily proximally and distally. A 3.0 mm dilator passed easily into the outflow vein. The anastomosis was completed. Occluding instruments were removed. The fistula filled promptly. There was an excellent palpable thrill as well as a strong signal using a Doppler. Half dose of protamine was administered. There was excellent hemostasis. Wound was closed in layers using absorbable suture. Local anesthesia with 0.5% Marcaine was administered. Sterile dressing was applied. Sponge, instrument, and needle counts were correct both prior to and after wound closure. Independent search of the operative field by both operating surgeons and nurse revealed no retained instruments or sponges. The patient tolerated the procedure well, was taken to the recovery area in stable condition. MD MARIANO Molina/ROSLYN /[id number]
--- NOTE | 2019-12-18 19:30 | NUR ---
walking rounds complete, report given to oncoming nurse.
[2019-12-18 20:00] VITALS: BP 124/81
--- NOTE | 2019-12-18 20:00 | NUR ---
Received change of shift report from AM nurse. Walking rounds completed.
[2019-12-18] MEDS: ATORVASTATIN 20 MG TAB PO SCH (21:00)
[2019-12-19] VITALS: BP 135/87
--- NOTE | 2019-12-19 | NUR ---
Patient resting with no c/o at this time. Continue monitor.
[2019-12-19 01:44] VITALS: BP 135/87
[2019-12-19 04:00] VITALS: BP 136/75
--- NOTE | 2019-12-19 04:37 | NUR ---
New graft site with thill and bruit. Patient states some numbness but no pain. Continue monitor.
--- NOTE | 2019-12-19 05:16 | Discharge Summary ---
DISCHARGE DIAGNOSES: 1. End-stage renal disease. 2. Anemia. 3. Gastrointestinal bleed. 4. Hypertension. 5. Status post AV fistula, left arm. HISTORY OF PRESENT ILLNESS AND HOSPITAL COURSE: The patient is a gentleman, who presented with weakness, shortness of breath, was found to have severe anemia secondary to melena, which was found on scope to be due to gastric ulcer, so the patient was placed on appropriate proton pump inhibitor. He was given some transfusions and his blood improved significantly that there were no more issues his melena resolved by the time of discharge. While he was here, the patient was noticed to have his worsening chronic kidney disease to the point now, he was on end-stage renal disease, so this was seen by Renal the patient tolerated his dialysis treatments well. We went ahead and had his fistula placed in the left forearm discharged home in good condition. For full discharge medications, he is discharged on Protonix 40 mg b.i.d. He is to follow up in 2 weeks with me as well as with Renal and Dr. . Please see hospital chart for full details. MD HERNAN Pagan/ROSLYN /[id number]
[2019-12-19] MEDS: PANTOPRAZOLE 40 MG 10ML VIAL IV SCH (05:39)
[2019-12-19 08:00] VITALS: BP 146/81
--- NOTE | 2019-12-19 08:05 | NUR ---
CALLED [facility] AND LET THEM KNOW HE IS DISCHARGING TODAY AND WILL BEGIN TOMORROW.
[2019-12-19] MEDS: CALCITRIOL 0.25 MCG CAP PO SCH (08:48)
[2019-12-19] MEDS: NIFEDIPINE CR 30 MG TAB PO SCH (08:48)
[2019-12-19] MEDS: HYDRALAZINE HCL 25 MG TAB PO SCH ×2 (08:49→11:44)
[2019-12-19 09:07] VITALS: BP 146/81
[2019-12-19] MEDS: INSULIN LISPRO 100 UNIT/1 ML 3ML VIAL SQ SCH ×2 (10:43→11:30)
--- NOTE | 2019-12-19 11:18 | NUR ---
IMM LETTER EXPLAINED TO PT. PT VERBALIZED UNDERSTANDING. IMM LETTER SIGNED. COPY TO PT AND COPY TO CHART. PT TO DC HOME AFTER LUNCH PER BEDSIDE NURSE; NEREIDA.
--- NOTE | 2019-12-19 11:28 | NUR ---
CALL RECEIVED FROM [facility] REQUESTING OPERATIVE NOTE AND SURGERY CONSULT NOTE. FAXED INFO TO [phone].
[2019-12-19] MEDS: CLONIDINE HCL 0.1 MG TAB PO PRN (11:45)
[2019-12-19 11:52] VITALS: BP 179/98
== END 2019-12-19 15:04 | disposition home or self-care (01) | DRG 356 ==
LOC: ER 15:36 → ERHOLD 18:03 → MED/SURG3 12-09 13:23
PROVIDERS: ADMIT Internal Medicine; ATTEND Internal Medicine
PROC: 0JH63XZ Insertion of Tunneled Vascular Access Device into Chest Subcutaneous Tissue and Fascia, Percutaneous Approach (ICD-10-PCS; 2019-12-09)
PROC: 02H633Z Insertion of Infusion Device into Right Atrium, Percutaneous Approach (ICD-10-PCS; 2019-12-09)
PROC: B548ZZA Ultrasonography of Superior Vena Cava, Guidance (ICD-10-PCS; 2019-12-09)
PROC: 5A1D70Z Performance of Urinary Filtration, Intermittent, Less than 6 Hours Per Day (ICD-10-PCS; 2019-12-09)
PROC: 30233N1 Transfusion of Nonautologous Red Blood Cells into Peripheral Vein, Percutaneous Approach (ICD-10-PCS; 2019-12-09)
PROC: 5A1D70Z Performance of Urinary Filtration, Intermittent, Less than 6 Hours Per Day (ICD-10-PCS; 2019-12-10)
PROC: 0DB68ZX Excision of Stomach, Via Natural or Artificial Opening Endoscopic, Diagnostic (ICD-10-PCS; 2019-12-10)
PROC: 5A1D70Z Performance of Urinary Filtration, Intermittent, Less than 6 Hours Per Day (ICD-10-PCS; 2019-12-11)
PROC: 5A1D70Z Performance of Urinary Filtration, Intermittent, Less than 6 Hours Per Day (ICD-10-PCS; 2019-12-13)
PROC: 5A1D70Z Performance of Urinary Filtration, Intermittent, Less than 6 Hours Per Day (ICD-10-PCS; 2019-12-15)
PROC: 5A1D70Z Performance of Urinary Filtration, Intermittent, Less than 6 Hours Per Day (ICD-10-PCS; 2019-12-17)
PROC: 031C0ZF Bypass Left Radial Artery to Lower Arm Vein, Open Approach (ICD-10-PCS; principal; 2019-12-18 12:30)
DX: K25.0 Acute gastric ulcer with hemorrhage (principal); N18.6 End stage renal disease; I12.0 Hypertensive chronic kidney disease with stage 5 chronic kidney disease or end stage renal disease; E87.2 Acidosis; E11.22 Type 2 diabetes mellitus with diabetic chronic kidney disease; K21.9 Gastro-esophageal reflux disease without esophagitis; E78.5 Hyperlipidemia, unspecified; Z83.3 Family history of diabetes mellitus; Z82.49 Family history of ischemic heart disease and other diseases of the circulatory system; Z88.0 Allergy status to penicillin; E11.319 Type 2 diabetes mellitus with unspecified diabetic retinopathy without macular edema; H54.8 Legal blindness, as defined in USA; E11.21 Type 2 diabetes mellitus with diabetic nephropathy; K29.80 Duodenitis without bleeding; K44.9 Diaphragmatic hernia without obstruction or gangrene; Z79.4 Long term (current) use of insulin
CPT/HCPCS: 36415; 36558; 43239; 71045; 74176; 74470; 76770; 76937; 77001; 80048; 80053; 82270; 82550; 82553; 82728; 82948; 83540; 83735; 84466; 84484; 85025; 85610; 85730; 86704; 86705; 86706; 86850; 86900; 86920; 87340; 87350; 88305; 88312; 93005; 96360; 96365; 99284; C1769; C1892; J0330; J1644; J1940; J2001; J2250; J2710; J2720; J2765; J3010; J3370; J7030; J7040; J7050; P9016

== ENCOUNTER → 2020-02-13 | Day surgery (SDC) | payer MEDICARE, OTHER ==
[2020-02-10 08:51] LABS: BASOPHILS # (AUTO) 0.1 (0.0-0.1); BASOPHILS % 0.9 % (0.0-1.0); EOSINOPHILS # (AUTO) 0.2 (0.0-0.4); EOSINOPHILS % 3.2 % (0.0-6.0); HEMATOCRIT 31.5 % (38.2-49.6); HEMOGLOBIN 10.3 g/dL (14.0-18.0); LYMPHOCYTES % 15.6 % (18.0-39.1); MEAN CORPUSCULAR HGB CONC 32.7 g/dL (31-35); MEAN CORPUSCULAR VOLUME 88.7 fL (81-99); MONOCYTES # (AUTO) 0.4 (0.2-0.8); MONOCYTES % 6.2 % (4.4-11.3); NEUTROPHILS # (AUTO) 4.9 (2.1-6.9); NEUTROPHILS % 73.9 % (38.7-80.0); PLATELET COUNT 209 x10e3/uL (140-360); RED BLOOD COUNT 3.55 x10e6/uL (4.3-5.7); RED CELL DISTRIBUTION WIDTH 13.7 % (11.7-14.4)
[2020-02-10 09:07] LABS: ANION GAP 20.5 mmol/L (8-16); CALCIUM 9.2 mg/dL (8.4-10.2); CREATININE, SERUM 8.65 mg/dL (0.72-1.25); POTASSIUM 3.5 mmol/L (3.5-5.1)
[~2020-02-13] MED LIST changes: +BUPIVACAINE 0.25% 30ML SDV INJ ONE; +CALCITRIOL0.25 MCG PO; +DEXAMETHASONE SOD PHOS INJ 4 MG/ML VIAL ONE; +EPHEDRINE SULFATE INJ 50 MG/ML VIAL ONE; +FENTANYL CITRATE/PF 100MCG/2 ML INJ ONE; +HYDRALAZINE HCL25 MG PO; +HYDROCODONE/APAP 7.5MG-325MG 1 EA TAB ONE; +LEVEMIR SC; +LIDOCAINE 1% W/EPINEPHRINE 20 ML VIAL ONE; +LIDOCAINE HCL 2% LOCAL INJ 5 ML SDV VIAL INJ ONE; +MIDAZOLAM HCL 2 MG/2 ML VIAL ONE; +ONDANSETRON HCL INJ 2MG/ML 2ML 2 MG/ML VIAL ONE; +PROPOFOL IV EMULSION 10 MG/ML 20 ML VIAL ONE; +RENVELA0.8 GM PO; +SEVOFLURANE INHAL SOLN 250 ML PEN BTL ONE; +SODIUM BICARBO650 MG PO; +SODIUM CHLORIDE 0.9% 500ML 500 ML ONE
[2020-02-13 08:10] LABS: INR 0.85; PROTHROMBIN TIME 12.1 seconds (11.9-14.5)
[2020-02-13 08:11] LABS: PARTIAL THROMBOPLASTIN TIME 25.4 seconds (23.8-35.5)
[2020-02-13 08:15] LABS: ANION GAP 23.3 mmol/L (8-16); CALCIUM 9.3 mg/dL (8.4-10.2); CREATININE, SERUM 7.4 mg/dL (0.72-1.25); POTASSIUM 3.3 mmol/L (3.5-5.1)
[2020-02-13 13:17] VITALS: BP 124/78
--- NOTE | 2020-02-13 19:04 | Operative Report ---
DATE OF PROCEDURE: 02/13/2020 SURGEON: Joe Catalan MD PREOPERATIVE DIAGNOSIS: Right inguinal hernia. POSTOPERATIVE DIAGNOSIS: Right inguinal hernia. OPERATION PERFORMED: Repair of right inguinal hernia with extended Prolene hernia system. MUSHROOM GROWTH MEDIA MIXER: Carlton SAUCEDA ANESTHESIA: General. COMPLICATIONS: None. ESTIMATED BLOOD LOSS: Minimal. DESCRIPTION OF PROCEDURE: With the patient lying in bed in the supine position under good general anesthesia, the abdomen was prepped with Betadine solution and draped in the usual manner. A right inguinal incision was made, which was carried down through the subcutaneous tissue down to the external oblique aponeurosis. External oblique was opened along the length of its fibers and the external inguinal ring was opened. The cord was then mobilized and retracted contained within the cord was a large indirect hernia sac, which extended all the way down through the scrotum. This was slowly and carefully from the surrounding structures and all the contents were reduced back to the intraabdominal cavity. The hernia sac was opened and the excess was then resected and the sac was closed with a pursestring suture of 2-0 silk and a 2-0 silk tie. After this was done, the preperitoneal space was then entered through the internal ring and a pocket was created without any difficulty. An extended Prolene Hernia System was placed in the preperitoneal space and the underlay patch was deployed without any problems. The overlay patch was then placed over the floor and split inferolaterally to allow for passage of the cord. The mesh was then sutured to the conjoined tendon and the inguinal ligament using interrupted sutures of 2-0 Vicryl. The whole area was then thoroughly irrigated. Perfect hemostasis was ascertained. All layers were infiltrated on the way out with solution of 0.25% Marcaine and 1% lidocaine mixed in equal parts. The external oblique aponeurosis was closed with a running suture of 2-0 Vicryl. Subcutaneous tissue was approximated with 3-0 plain and the skin was closed with clips. Dressings were applied. The sponge, lap, and needle count was correct. The patient tolerated the procedure well and returned to the recovery room in stable condition. Joe Catalan MD JLR/MODL /[id number]
== END | disposition home or self-care (01) ==
LOC: OR 07:10
PROVIDERS: ATTEND Surgery
DX: K40.90 Unilateral inguinal hernia, without obstruction or gangrene, not specified as recurrent (principal); E11.22 Type 2 diabetes mellitus with diabetic chronic kidney disease; I12.0 Hypertensive chronic kidney disease with stage 5 chronic kidney disease or end stage renal disease; N18.6 End stage renal disease; I45.10 Unspecified right bundle-branch block; J45.909 Unspecified asthma, uncomplicated; R01.1 Cardiac murmur, unspecified; Z88.0 Allergy status to penicillin; Z01.810 Encounter for preprocedural cardiovascular examination; Z01.812 Encounter for preprocedural laboratory examination; Z11.59 Encounter for screening for other viral diseases; Z79.4 Long term (current) use of insulin
CPT/HCPCS: 36415 ×2; 49505; 80048 ×2; 82948; 85025; 85610; 85730; 87635; 93005; C1781; J1100; J2001; J2250; J2405; J2704; J3010; J7040

== ENCOUNTER 2021-06-09 13:27 | Emergency (ER) | payer MEDICARE ==
[~2021-06-09] VITALS: Ht 170.2 cm; Wt 68.0 kg
[~2021-06-09 13:27] MED LIST changes: -BUPIVACAINE 0.25% 30ML SDV INJ ONE; -DEXAMETHASONE SOD PHOS INJ 4 MG/ML VIAL ONE; -EPHEDRINE SULFATE INJ 50 MG/ML VIAL ONE; -FENTANYL CITRATE/PF 100MCG/2 ML INJ ONE; -HYDROCODONE/APAP 7.5MG-325MG 1 EA TAB ONE; -LIDOCAINE 1% W/EPINEPHRINE 20 ML VIAL ONE; -LIDOCAINE HCL 2% LOCAL INJ 5 ML SDV VIAL INJ ONE; -MIDAZOLAM HCL 2 MG/2 ML VIAL ONE; -ONDANSETRON HCL INJ 2MG/ML 2ML 2 MG/ML VIAL ONE; -PROPOFOL IV EMULSION 10 MG/ML 20 ML VIAL ONE; -SEVOFLURANE INHAL SOLN 250 ML PEN BTL ONE; -SODIUM CHLORIDE 0.9% 500ML 500 ML ONE
[2021-06-09] MEDS ORDERED: FAMOTIDINE 20 MG/2 ML VIAL IV STA (14:41)
[2021-06-09] MEDS ORDERED: METOCLOPRAMIDE HCL 10 MG/2ML VIAL IV ONE (14:45)
[2021-06-09 15:13] LABS: BASOPHILS % 0.5 % (0.0-1.0); HEMATOCRIT 37.7 % (38.2-49.6); HEMOGLOBIN 12.3 g/dL (14.0-18.0); LYMPHOCYTES # (AUTO) 0.6 (1.0-3.2); LYMPHOCYTES % 8.4 % (18.0-39.1); MEAN CORPUSCULAR HGB CONC 32.6 g/dL (31-35); MONOCYTES # (AUTO) 0.2 (0.2-0.8); MONOCYTES % 2.9 % (4.4-11.3); NEUTROPHILS # (AUTO) 6.6 (2.1-6.9); NEUTROPHILS % 87.8 % (38.7-80.0); PLATELET COUNT 283 x10e3/uL (140-360); RED CELL DISTRIBUTION WIDTH 13.3 % (11.7-14.4)
[2021-06-09 15:19] LABS: ALBUMIN 4.1 g/dL (3.5-5.0); ALBUMIN/GLOBULIN RATIO 1.2 (0.8-2.0); ANION GAP 24.4 mmol/L (8-16); CALCIUM 9.3 mg/dL (8.4-10.2); CREATININE, SERUM 9.56 mg/dL (0.72-1.25); POTASSIUM 3.4 mmol/L (3.5-5.1)
[2021-06-09] MEDS ORDERED: DICYCLOMINE HCL20 MG PO (18:06)
[2021-06-09] MEDS ORDERED: REGLAN10 MG PO (18:06)
[2021-06-09 18:14] VITALS: BP 163/67
== END 2021-06-09 18:15 | disposition home or self-care (01) ==
LOC: ER 13:40
DX: R10.9 Unspecified abdominal pain (principal); K80.20 Calculus of gallbladder without cholecystitis without obstruction; I12.0 Hypertensive chronic kidney disease with stage 5 chronic kidney disease or end stage renal disease; N18.6 End stage renal disease; Z99.2 Dependence on renal dialysis; Z20.822 Contact with and (suspected) exposure to COVID-19
CPT/HCPCS: 36415; 74176; 80053; 83690; 85025; 93005; 99284; J2765; U0002

== ENCOUNTER → 2021-08-05 | Day surgery (SDC) | payer MEDICARE ==
[~2021-08-05] MED LIST changes: +BUPIVACAINE HCL 0.5% INJ 30 ML VIAL INJ ONE; +DEXAMETHASONE SOD PHOS INJ 4 MG/ML SDV ONE; +DICYCLOMINE HCL20 MG PO; +FENTANYL CITRATE/PF 100MCG/2 ML INJ ONE; +LABETALOL HCL 20 ML ONE; +LIDOCAINE HCL 2% LOCAL INJ 5 ML SDV VIAL INJ ONE; +MIDAZOLAM HCL 2 MG/2 ML VIAL ONE; +Morphine 4mg Syringe 4 MG/ML INJ ONE; +ONDANSETRON HCL INJ 2MG/ML 2ML 2 MG/ML VIAL ONE; +PHENYLEPHRINE HCL 1% 10 MG/ML VIAL ONE; +POVIDONE IODINE 0.05% 0.05 % ML PO ONE; +PROPOFOL IV EMULSION 10 MG/ML 20 ML VIAL ONE; +REGLAN10 MG PO; +ROCURONIUM BROMIDE 10 MG/ML 5ML VIAL IV ONE; +SEVOFLURANE INHAL SOLN 250 ML PEN BTL ONE; +SODIUM CHLORIDE 0.9% 500ML 500 ML ONE; +SODIUM CHLORIDE 0.9% 50ML 50 ML ONE; +SUGAMMADEX SODIUM 200 MG/2 ML VIAL IV ONE; +TRAMADOL HCL 50 MG TAB ONE; +ULTRACET TABLE1 EACH PO; +Vancomycin IV 1 GM VIAL ONE
[2021-08-05 11:55] LABS: BASOPHILS # (AUTO) 0.1 (0.0-0.1); BASOPHILS % 0.9 % (0.0-1.0); EOSINOPHILS # (AUTO) 0.2 (0.0-0.4); HEMATOCRIT 40.5 % (38.2-49.6); LYMPHOCYTES # (AUTO) 1.4 (1.0-3.2); LYMPHOCYTES % 22.1 % (18.0-39.1); MEAN CORPUSCULAR HEMOGLOBIN 30.4 pg (28-32); MEAN CORPUSCULAR HGB CONC 32.1 g/dL (31-35); MEAN CORPUSCULAR VOLUME 94.6 fL (81-99); MONOCYTES # (AUTO) 0.6 (0.2-0.8); MONOCYTES % 9.1 % (4.4-11.3); NEUTROPHILS # (AUTO) 4.1 (2.1-6.9); NEUTROPHILS % 64.6 % (38.7-80.0); PLATELET COUNT 293 x10e3/uL (140-360); RED BLOOD COUNT 4.28 x10e6/uL (4.3-5.7); RED CELL DISTRIBUTION WIDTH 14.2 % (11.7-14.4)
[2021-08-05 12:15] LABS: ALBUMIN 3.9 g/dL (3.5-5.0); ALBUMIN/GLOBULIN RATIO 1.1 (0.8-2.0); ANION GAP 20.8 mmol/L (8-16); CALCIUM 8.9 mg/dL (8.4-10.2); CREATININE, SERUM 6.53 mg/dL (0.72-1.25); POTASSIUM 3.8 mmol/L (3.5-5.1)
[2021-08-05 12:18] LABS: INR 0.92; PARTIAL THROMBOPLASTIN TIME 28.1 seconds (23.8-35.5); PROTHROMBIN TIME 13.1 seconds (11.9-14.5)
[2021-08-05 14:50] VITALS: BP 148/97
== END | disposition home or self-care (01) ==
LOC: OR 10:17
PROVIDERS: ATTEND Surgery
DX: K80.10 Calculus of gallbladder with chronic cholecystitis without obstruction (principal); K82.8 Other specified diseases of gallbladder; K40.90 Unilateral inguinal hernia, without obstruction or gangrene, not specified as recurrent; K28.9 Gastrojejunal ulcer, unspecified as acute or chronic, without hemorrhage or perforation; I44.7 Left bundle-branch block, unspecified; H54.62 Unqualified visual loss, left eye, normal vision right eye; J45.909 Unspecified asthma, uncomplicated; R01.1 Cardiac murmur, unspecified; E11.22 Type 2 diabetes mellitus with diabetic chronic kidney disease; I12.0 Hypertensive chronic kidney disease with stage 5 chronic kidney disease or end stage renal disease; N18.6 End stage renal disease; Z88.0 Allergy status to penicillin; Z01.812 Encounter for preprocedural laboratory examination; Z20.822 Contact with and (suspected) exposure to COVID-19; Z99.2 Dependence on renal dialysis
CPT/HCPCS: 36415; 47562; 80053; 82948; 85025; 85610; 85730; 88304; J1100; J2001; J2250; J2270; J2370; J2405; J2704; J3010; J3370; J7040; U0002